=== PATIENT | male | born 1950 | race Caucasian/White ===

== ENCOUNTER 2016-08-13 05:04 | Inpatient (IN) | payer BC, OTHER ==
[2016-08-02 12:00] VITALS: BMI 34.0
--- NOTE | 2016-08-02 12:31 | PAT Medication Instructions ---
Service Date Aug 02, 2016. Current Home Medication List Empagliflozin (Jardiance), 10 MG PO QPM Fish Oil ([place]-3), 1 CAP PO DAILY Ibuprofen Tab (Advil), 400 MG PO TID PRN for RN Irbesartan-Hydrochlorothiazide (Avalide), 1 TAB PO QAM Multivitamin (Multivitamin), 1 TAB PO QPM Nebivolol Hcl (Bystolic), 5 MG PO QAM Omeprazole (Omeprazole), 1 TAB PO PRN Rosuvastatin Calcium (Crestor), 5 MG PO QPM Tramadol (Ultram), 50-100 MG PO TID PRN for geriatric nurse Instructions For Your Scheduled Surgery - Hold the following medications 10 days prior to surgery: Fish Oil ([place]-3), 1 CAP PO DAILY Ibuprofen Tab (Advil), 400 MG PO TID PRN for RN - Hold the following medications the morning of surgery: Irbesartan-Hydrochlorothiazide (Avalide), 1 TAB PO QAM - Take the following medications the morning of surgery with a sip of water: Tramadol (Ultram), 50-100 MG PO TID PRN for RN (can take up to four hours prior to surgery if needed) Omeprazole (Omeprazole), 1 TAB PO PRN Nebivolol Hcl (Bystolic), 5 MG PO QAM - Take the following medications as scheduled the night before surgery: Tramadol (Ultram), 50-100 MG PO TID PRN for RN Rosuvastatin Calcium (Crestor), 5 MG PO QPM Multivitamin (Multivitamin), 1 TAB PO QPM Empagliflozin (Jardiance), 10 MG PO QPM If you have any questions please call us at [phone] or [phone] ( Pat) or [phone]
--- NOTE | 2016-08-02 13:21 | DIAGNOSTIC IMAGING REPORT ---
TWO VIEW CHEST CLINICAL HISTORY: Preoperative examination. FINDINGS: PA and lateral chest radiographs are obtained. No prior studies are available for comparison at the time of dictation. The cardiomediastinal silhouette is unremarkable. The lungs and pleural spaces are clear. There is no pneumothorax. The bony thorax appears intact. IMPRESSION: No active disease in the chest. Electronically signed by: Haris Denny M.D. 08/02/2016 1:20 PM Dictated Date/Time: 08/02/2016 1:19 PM
[2016-08-02 13:35] LABS: BASO % 0.6 %; BASO ABS # 0.04 K/uL (0-0.2); COMPLETE YES; EOS % 3.6 %; HEMATOCRIT 44.6 % (42-52); IG% 0.3 %; LYMPH % 38.3 %; LYMPH ABS # 2.36 K/uL (1.2-3.4); MEAN CELL VOLUME 93.3 fL (80-100); MEAN CORPUSCULAR HGB CONC 34.3 g/dl (32-36); MEAN PLATELET VOLUME 9.3 fL (7.4-10.4); MONO % 9.9 %; NEUT % 47.3 %; PLATELET COUNT 280 K/uL (130-400); RED BLOOD COUNT 4.78 M/uL (4.7-6.1); WHITE BLOOD COUNT 6.16 K/uL (4.8-10.8)
[2016-08-02 13:39] LABS: URINE APPEARANCE CLEAR (CLEAR); URINE BILIRUBIN NEG (NEG); URINE COLOR YELLOW; URINE NITRITE NEG (NEG); URINE PH 5.5 (4.5-7.5); URINE SPECIFIC GRAVITY 1.034 (1.000-1.030); UROBILINOGEN NEG (NEG); ZZUR CULT IF INDIC CLEAN CATCH NO
[2016-08-02 13:50] LABS: MANUAL MICROSCOPIC REQUIRED? NO; REVIEW REQ? NO
[2016-08-02 14:00] LABS: PARTIAL THROMBOPLASTIN RATIO 0.9; PROTHROMBIN TIME (PATIENT) 10.4 SECONDS (9.0-12.0)
[2016-08-02 14:43] LABS: BUN/CREATININE RATIO 22.7 (10-20); CALCIUM 9.6 mg/dl (8.5-10.1); CREATININE 1.1 mg/dl (0.60-1.40); POTASSIUM 4.2 mmol/L (3.5-5.1)
--- NOTE | 2016-08-12 23:57 | HISTORY & PHYSICAL EXAMINATION ---
DATE OF ADMISSION: 08/13/2016 CHIEF COMPLAINT: Right hip pain. 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 The pain rates his pain an 8/10. He has pain with his daily activities. He has limited standing and walking tolerance. Pain is worse with weightbearing. The patient has had anti-inflammatories, injections and tramadol without relief. He has failed conservative treatments and is scheduled for a right hip replacement. PAST MEDICAL HISTORY: Hypertension, hypercholesterolemia, prediabetes and osteoarthritis. He denies heart disease or DVT. PAST SURGICAL HISTORY: ACL reconstruction left, L3-L4 microdiscectomy, left elbow arthroscopic surgery, left knee hardware removal and left knee SOCIAL HISTORY: The patient drinks 10 drinks per week. He denies tobacco use. He lives in a 2-ronnie home. 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 FAMILY HISTORY: Positive for [place] in his brother at age 59. Negative for DVT. MEDICATIONS: ALLERGIES: None. REVIEW OF SYSTEMS: See HPI. Ten other systems were reviewed, all negative. PHYSICAL EXAMINATION: VITAL SIGNS: Height 5 feet 7 inches, weight 221 pounds, BMI of 35. GENERAL: A well-developed and well-nourished male, who is alert and oriented x3. Mood and affect are appropriate. HEENT: Normocephalic and atraumatic. Mucous membranes are moist and intact. NECK: Supple without lymphadenopathy. HEART: Regular rate and rhythm without murmurs, rubs or gallops. LUNGS: Clear to auscultation without wheezes or rhonchi. ABDOMEN: Soft and nontender. Bowel sounds are equal and active. EXTREMITIES: No ecchymosis, redness or warmth. The calves are soft and nontender. Log roll of the hip reproduces pain. Range of motion is decreased. Neurovascularly intact, with 5/5 strength. He walks with an antalgic gait. X-RAY: AP and lateral views show joint space narrowing and osteophyte formation. IMPRESSION: Degenerative joint disease, right hip. PLAN: The patient will be fixed for a right total hip arthroplasty, direct anterior approach. We will plan on aspirin for DVT prophylaxis. COLEMAN
[~2016-08-13] VITALS: Ht 172.7 cm; Wt 100.0 kg
[2016-08-13] VITALS (10 sets, daily range): BP systolic 108–146; BP diastolic 68–91; PULSE 68–89; TEMP 36.2–36.6; O2SAT 95–99; Ht 172.7 cm; Wt 100.0 kg
[~2016-08-13 05:04] MED LIST: EMPA1TAB PO; IBUP-103 PO; IRBE-43 PO; MULT-506 PO; NEBI10TA2 PO; OMEG10007 PO; OMEP20TA PO; ROSU5TAB PO; TRAM-10 PO
[2016-08-13] MEDS ORDERED: ACETAMINOPHEN 500 MG TAB PO SCH (06:00)
[2016-08-13] MEDS ORDERED: CEFAZOLIN 2000 MG/60 ML D5W 60 ML IV SCH (06:00)
[2016-08-13] MEDS ORDERED: POLYMYXIN B SULFATE 100,000 UNITS in NSS 100ML IR SCH (06:00)
[2016-08-13] MEDS ORDERED: LACTATED RINGER'S 1000ML IV SCH (06:00)
[2016-08-13] MEDS ORDERED: LACTATED RINGER'S 1000ML 1,000 ML IV SCH (06:00)
[2016-08-13] MEDS ORDERED: CeleBREX 200 MG CAP PO SCH (06:00)
[2016-08-13] MEDS ORDERED: FAMOTIDINE 20 MG TAB PO SCH (06:00)
[2016-08-13] MEDS ORDERED: LACTATED RINGER'S 500 ML IV SCH (06:00)
[2016-08-13] MEDS ORDERED: DEXAMETHASONE 4 MG TAB PO SCH (06:00)
[2016-08-13] MEDS ORDERED: VANCOMYCIN INJ 400 MG in NSS 100ML IR SCH (06:00)
[2016-08-13] MEDS ORDERED: METOCLOPRAMIDE HCL 10 MG TAB PO SCH (06:00)
[2016-08-13] MEDS ORDERED: GABAPENTIN 300 MG CAP PO SCH (06:00)
[2016-08-13] MEDS ORDERED: OXYCODONE HCL 10 MG TABCR (OXYCONTIN) PO SCH (06:00)
[2016-08-13] MEDS ORDERED: ROPIVACAINE 5MG/ML 30 ML 150 MG, BUPIVACAINE/EPINEPHR 0.5% MPF 30 ML, KETOROLAC TROMETH... INFIL SCH ×7 (06:00)
[2016-08-13] MEDS: TRANEXAMIC ACID INJ 1,000 MG in SODIUM CHLORIDE 0.9% 100ML 100 ML IV SCH ×2 (06:10→11:57)
[2016-08-13] MEDS ORDERED: BUPIVACAINE 0.5 % 5 MG/1 ML PF 10ML VIAL ONE (06:29)
[2016-08-13] MEDS ORDERED: MIDAZOLAM HCL 1 MG/ML 2ML VIAL ONE ×2 (06:45)
[2016-08-13] MEDS ORDERED: FENTANYL CITRATE INJ 50 MCG/1 ML 2 ML VIAL ONE (06:45)
[2016-08-13] MEDS ORDERED: BACITRACIN 50000 UNIT VIAL ONE (06:52)
[2016-08-13] MEDS ORDERED: ORTHO JOINT ANESTHETIC ONE (06:52)
[2016-08-13] MEDS ORDERED: POVIDONE-IODINE OP SOLN 30 ML BTL ONE (06:52)
--- NOTE | 2016-08-13 06:52 | History & Physical Bridge Note ---
H&P Re-Evaluation Bridge Note: I have examined the patient, reviewed the History & Physical and in the interval since the performance of the History & Physical I have noted the following changes of clinical significance: No changes noted
[2016-08-13] MEDS ORDERED: ONDANSETRON INJ 2 MG/ML 2 ML VIAL IV PRN (07:00)
[2016-08-13] MEDS ORDERED: EpHEDrine SULFATE INJ 50 MG/ML AMP IV PRN (07:00)
[2016-08-13] MEDS ORDERED: ATROPINE SULFATE 0.1 MG/ML 5ML SYR IV PRN (07:00)
[2016-08-13] MEDS ORDERED: FENTANYL CITRATE INJ 50 MCG/1 ML 2 ML VIAL IV PRN (07:00)
[2016-08-13] MEDS ORDERED: PHENYLEPHRINE 100MCG/ML 5ML SYR ONE (07:33)
[2016-08-13] MEDS ORDERED: LIDOCAINE HCL 2% 2 ML VIAL (20MG/ML) ONE (07:33)
[2016-08-13] MEDS ORDERED: PROPOFOL IV EMULSION 10 MG/ML 20 ML VIAL IV ONE (07:33)
[2016-08-13] MEDS ORDERED: EpHEDrine SULFATE 50MG/5ML SYR ONE (07:33)
--- NOTE | 2016-08-13 08:36 | [facility] Post Operative Brief Note ---
Immediate Operative Summary Operative Date August 13, 2016. Pre-Operative Diagnosis Right hip degenerative joint disease Post-Operative Diagnosis Right hip degenerative joint disease Procedure(s) Performed Right Total Hip Arthroplasty Direct Anterior Approach Surgeon Dr. Hubert [facility] [employer] Consultant Surgeon(s) Maribeth Ratliff PA-C Estimated Blood Loss 75ML Findings DJD Specimens A. Right femoral head Complication(s) None Disposition Recovery Room / PACU
[2016-08-13] MEDS ORDERED: MoRPHine SULFATE 2 MG/ML CARP IV PRN (08:45)
[2016-08-13] MEDS ORDERED: DiphenhydrAMINE HCL 50 MG/ML VIAL IV PRN (08:45)
[2016-08-13] MEDS ORDERED: OXYCODONE HCL IR 5 MG TAB (IMMEDIATE RELEASE) PO PRN (08:45)
[2016-08-13] MEDS ORDERED: TRAMADOL HCL 50 MG TAB PO PRN (08:45)
[2016-08-13] MEDS ORDERED: ALUMINUM/MAGNESIUM/SIMETH (MAALOX MAX) 30 ML UDC PO PRN (08:45)
[2016-08-13] MEDS ORDERED: ZOLPIDEM TARTRATE 5 MG TAB PO PRN (08:45)
[2016-08-13] MEDS ORDERED: MAGNESIUM HYDROXIDE SUSP 30 ML UDC PO PRN (08:45)
[2016-08-13] MEDS ORDERED: BISACODYL 10 MG SUPP PR PRN (08:45)
[2016-08-13] MEDS ORDERED: METOCLOPRAMIDE HCL INJ 5 MG/ML 2 ML VIAL IV PRN (08:45)
[2016-08-13] MEDS ORDERED: SOD PHOSPHATE/SOD BIPHOSPHATE ENEMA 132 ML BTL PR PRN (08:45)
[2016-08-13] MEDS ORDERED: NON-FORMULARY MEDICATION (Irbesartan-Hydrochlorothiazide (Avalide) 1 TAB) PO SCH (09:00)
--- NOTE | 2016-08-13 10:12 | DIAGNOSTIC IMAGING REPORT ---
AP PELVIS, CROSSTABLE LATERAL RIGHT HIP History: Right total hip arthroplasty. Degenerative arthritis. Postop. FINDINGS: The patient is status post a right total hip arthroplasty. The hardware is intact. No fracture or dislocation. Surgical drains are in place. IMPRESSION: Right total hip arthroplasty. No evidence for hardware complication Electronically signed by: Stanton Zacarias M.D. 08/13/2016 10:11 AM Dictated Date/Time: 08/13/2016 10:10 AM
--- NOTE | 2016-08-13 10:17 | Anesthesiology Progress Note ---
Anesthesia Post Op Note Date & Time August 13, 2016 at 10:17 Vital Signs Pain Intensity: 0 Vital Signs Past 12 Hours Date Time Temp Pulse Resp B/P Pulse Ox O2 Delivery O2 Flow Rate FiO2 08/13/16 10:11 80 15 100 08/13/16 10:11 78 15 08/13/16 10:10 118/81 08/13/16 10:06 71 19 100 08/13/16 10:06 72 19 08/13/16 10:05 132/86 08/13/16 10:01 73 16 100 08/13/16 10:01 69 16 08/13/16 10:00 126/81 08/13/16 09:56 62 12 08/13/16 09:56 61 12 99 08/13/16 09:55 120/72 08/13/16 09:51 62 10 100 08/13/16 09:51 62 10 08/13/16 09:50 112/64 08/13/16 09:46 66 15 08/13/16 09:46 66 15 100 08/13/16 09:45 123/75 08/13/16 09:41 65 16 08/13/16 09:41 64 16 100 08/13/16 09:40 107/71 08/13/16 09:36 74 24 08/13/16 09:36 78 24 100 08/13/16 09:35 133/75 08/13/16 09:31 74 17 100 08/13/16 09:31 72 17 08/13/16 09:30 108/73 08/13/16 09:26 69 6 100 08/13/16 09:26 67 6 08/13/16 09:25 126/73 08/13/16 09:21 78 22 08/13/16 09:21 78 22 100 08/13/16 09:20 74 13 99/82 100 08/13/16 09:20 74 13 08/13/16 09:15 70 17 08/13/16 09:15 69 17 119/71 99 08/13/16 09:10 73 17 107/76 100 08/13/16 09:10 73 17 08/13/16 09:06 115/67 08/13/16 09:05 78 13 100 08/13/16 09:05 79 13 08/13/16 09:00 73 14 08/13/16 09:00 73 14 119/69 100 08/13/16 08:55 36.3 70 16 119/69 100 Nasal Cannula 3 08/13/16 05:37 36.6 77 20 134/91 95 Room Air Notes Mental Status: alert / awake / arousable, participated in evaluation Pt Amnestic to Procedure: Yes Nausea / Vomiting: adequately controlled Pain: adequately controlled Airway Patency, RR, SpO2: stable & adequate BP & HR: stable & adequate Hydration State: stable & adequate Neuraxial Anesthesia: was administered, sensory block is resolving Anesthetic Complications: no major complications apparent
--- NOTE | 2016-08-13 11:50 | DIAGNOSTIC IMAGING REPORT ---
INTRAOPERATIVE RIGHT HIP SINGLE VIEW CLINICAL HISTORY: Right hip arthroplasty COMPARISON STUDY: No previous studies for comparison. FINDINGS: A single intraoperative fluoroscopic spot images provided for interpretation. 14 seconds of fluoroscopic time was utilized. There is a total right hip arthroplasty. The superior aspect of the acetabular cup is not included on the spot image. There is no dislocation identified. IMPRESSION: Intraoperative radiograph demonstrating a total right hip arthroplasty Electronically signed by: Teofilo Ayala M.D. 08/13/2016 11:49 AM Dictated Date/Time: 08/13/2016 11:48 AM
[2016-08-13] MEDS: D5W AND 1/2NSS + 20MEQ KCL 1,000 ML IV SCH ×2 (11:57→21:19)
[2016-08-13] MEDS: ACETAMINOPHEN 500 MG TAB PO SCH ×2 (13:46→21:20)
[2016-08-13] MEDS ORDERED: TRANEXAMIC ACID INJ 1,000 MG in SODIUM CHLORIDE 0.9% 100ML 100 ML IV ONE (15:00)
[2016-08-13] MEDS: KETOROLAC TROMETHAMINE 15 MG/ML VIAL IV. SCH ×2 (15:21→21:18)
[2016-08-13] MEDS: CEFAZOLIN IV 2,000 MG in DEXTROSE 5% 50ML 50 ML IV SCH ×2 (15:51→23:54)
[2016-08-13] MEDS ORDERED: SENNA 8.6 MG TAB PO SCH (21:00)
[2016-08-13] MEDS ORDERED: ROSUVASTATIN CALCIUM 5 MG TAB PO SCH (21:00)
[2016-08-13] MEDS: ASPIRIN 81 MG ECTAB PO SCH (21:19)
--- NOTE | 2016-08-13 22:50 | OPERATIVE REPORT ---
DATE OF OPERATION: 08/13/2016 PREOPERATIVE DIAGNOSIS: Degenerative arthritis, right hip. POSTOPERATIVE DIAGNOSIS: Same. PROCEDURE: Right total hip replacement. SURGEON: Hubert Orlando MD. CANE FLUME WATCHER: EARNEST Hsieh. ANESTHESIA: Spinal. BLOOD LOSS: 75 mL REPLACEMENT FLUIDS: 1500 mL crystalloid. DRAINS: Hemovacs x1. CULTURES: None. COMPLICATIONS: None. COMPONENTS USED: Fatima \T\ Nephew polar hip system: Acetabulum size 56, femur size 3 lateral offset, femoral head +4, 36 mm. NOTE: EARNEST Hsieh, was present and assisted throughout due to the complicated nature of this case. She helped with preparation and setup, first assisted throughout, and personally closed the fascial, subcutaneous and skin layers, and applied the postop dressing. DESCRIPTION: Following satisfactory spinal, the patient was supine. The right leg was placed in the traction device, the left leg in the well leg vega. The right leg was prepared with ChloraPrep and draped sterilely. Following a surgical timeout, an anterior approach was performed in the interval between the sartorius and tensor muscles. Circumflex femoral vessels were identified and ligated. An anterior capsulotomy was performed exposing the arthritic femoral neck and head. The femoral neck was trimmed and removed, showing degenerative changes. The acetabular self-retaining retractor was placed. Acetabular preparation was completed, and with reaming, a 56 shell was impacted into an anatomic position, secured with a dome screw. Local anesthetic was placed, and after irrigation, the poly liner was placed. The femur was placed in a position of external rotation, extension and adduction. Femoral canal was opened and prepared up to size 3. A trial reduction with a +4 head using fluoroscopy showed good fit and fill of the proximal canal and temple of leg lengths using anatomic landmarks. The trial component was removed. The hip was dislocated. The final implant was placed. After irrigation, fluoroscopy confirmed the position. A Betadine soak was performed for 5 minutes. After irrigation, the capsule was closed with #1 Vicryl interrupted. The fascia was closed with a running suture of #1 Vicryl after a drain was placed, subcutaneous tissues with 2-0 Vicryl, and the skin with a running subcuticular stitch of 3-0 V-Loc. Dermabond and a dry dressing were applied. The patient was returned to his bed in stable condition. I attest to the content of the Intraoperative Record and any orders documented therein. Any exceptio ns are noted below.
[2016-08-14] MEDS: KETOROLAC TROMETHAMINE 15 MG/ML VIAL IV. SCH ×2 (03:35→09:38)
[2016-08-14 04:04] VITALS: BP 113/72; PULSE 65; TEMP 36.5; O2SAT 97
[2016-08-14] MEDS: ACETAMINOPHEN 500 MG TAB PO SCH (05:51)
[2016-08-14 06:11] LABS: BASO % 0.1 %; BASO ABS # 0.02 K/uL (0-0.2); COMPLETE YES; HEMATOCRIT 37.5 % (42-52); IG% 0.3 %; LYMPH % 8.9 %; LYMPH ABS # 1.21 K/uL (1.2-3.4); MEAN CELL VOLUME 92.4 fL (80-100); MEAN CORPUSCULAR HGB CONC 33.6 g/dl (32-36); MEAN PLATELET VOLUME 9.4 fL (7.4-10.4); MONO % 8.5 %; NEUT % 82.2 %; PLATELET COUNT 220 K/uL (130-400); RED BLOOD COUNT 4.06 M/uL (4.7-6.1); WHITE BLOOD COUNT 13.59 K/uL (4.8-10.8)
[2016-08-14 06:38] LABS: BUN/CREATININE RATIO 19.5 (10-20); CALCIUM 8.3 mg/dl (8.5-10.1); CREATININE 1.2 mg/dl (0.60-1.40); POTASSIUM 4.3 mmol/L (3.5-5.1)
[2016-08-14] MEDS: D5W AND 1/2NSS + 20MEQ KCL 1,000 ML IV SCH (06:59)
[2016-08-14 07:59] VITALS: BP 119/73; PULSE 72; TEMP 36.8; O2SAT 99
[2016-08-14] MEDS ORDERED: RXC5 PO (08:03)
[2016-08-14] MEDS ORDERED: ONDA8TAB6 PO (08:03)
[2016-08-14] MEDS ORDERED: ACET-1138 PO (08:03)
[2016-08-14] MEDS ORDERED: CLB200 PO (08:03)
[2016-08-14] MEDS ORDERED: SNK PO (08:03)
[2016-08-14] MEDS ORDERED: ASPEC81 PO (08:03)
--- NOTE | 2016-08-14 08:04 | Discharge Instructions ---
Discharge Instructions Date of Service August 14, 2016. Admission Reason for Admission: Right Pelvis/Thigh Degenerative Arthritis Discharge Discharge Diagnosis / Problem: sp right CLARK Discharge Goals Goal(s): Decrease discomfort, Improve function, Increase independence Activity Recommendations Activity Limitations: per Instructions/Follow-up section . Instructions / Follow-Up Instructions / Follow-Up ACTIVITY RECOMMENDATIONS: SELF CARE INSTRUCTIONS AFTER TOTAL HIP REPLACEMENT : Direct Anterior Approach Until the incision and soft tissues around your hip have healed, there is a possibility that the hip prosthesis could dislocate. A. Hip flexion ( Up & Down out of chair or steps ) may be difficult. This is normal. B. Numbness in front of the thigh is also normal for a few weeks. C. Use hand rails when walking on stairs. D. Wear low heeled shoes with non-slip soles. E. Be sure that your floors are free of things that could trip you - throw rugs , electrical cords, small objects. Avoid wet and waxed floors, especially with crutches and canes. F. Try to walk several times a day with rest periods between. G. Continue with all the exercises taught to you in the hospital. Again, make walking a part of your daily routine. SPECIAL CARE INSTRUCTIONS: VERY IMPORTANT TO READ AND REVIEW A. You may still be at risk for phlebitis and blood clots. 1. Wear surgical stockings (GERTRUDIS hose) for 2 weeks after surgery to improve circulation and reduce swelling. 2. Take Aspirin 81mg twice daily for 4 weeks or as directed by your doctor. This is your blood thinner. 3. High risk patients may be prescribed a stronger blood thinner if necessary. 4. If you are on Coumadin normally, your family doctor/trade show coordinator should monitor your blood work. Expect a phone call the day of or the day after bloodwork is drawn to adjust your dosage. B. You must take antibiotics before having dental work, bladder, bowel and other surgery. Your doctor will provide you with a permanent card to carry describing precautions. C. Call [facility] if you have a fever, redness or swelling around the incision, cloudy drainage from incision, or sudden increase in pain in your hip, not relieved by your regular pain medication. D. Please call the office at if you have any concerns or questions about your operation or recovery. * YOU MAY SHOWER, NO TUB BATHS UNTIL CLEARED BY YOUR DOCTOR. - Keep an extra close eye on the top portion of your incision. Be sure to keep clean & dry. * WEAR GERTRUDIS HOSE 20 HOURS PER DAY FOR 2 WEEKS. * YOU MAY PROGRESS FROM A WALKER, TO A CANE, TO INDEPENDENT AT YOUR OWN PACE. * MOST PATIENTS WILL HAVE HOME NURSING FOR THERAPY. IF YOU DECIDE TO DO OUTPATIENT PHYSICAL THERAPY, PLEASE SCHEDULE THIS 3 TIMES PER WEEK. * DERMABOND Prineo- This is a mesh tape dressing that is covered with glue. It should remain in place until the incision is properly healed, usually 10-14 days. This dressing is designed to naturally slough off. You may trim the excess mesh tape as it peels off. Incision may be briefly wet in a shower. Dry immediately by blotting with a clean, dry towel. Do not bath or swim until instructed by your doctor. Do not scratch, rub, or pick at the dressing. Do not apply any topical ointments or lotions until dressing is completely removed and/or instructed by your doctor. There may be a small piece of suture material at one end of your incision. Do not pull or trim this. If it is bothersome or catching on clothing, you may cover it with a band-aid. FOLLOW UP VISIT: If appointment is not already scheduled: Please call [facility] to make a follow-up appointment for 2 weeks after your surgery at . Current Hospital Diet Patient's current hospital diet: Regular Diet Discharge Diet Recommended Diet: Regular Diet Procedures Procedures Performed: Right Total Hip Arthroplasty Direct Anterior Approach Pending Studies Studies pending at discharge: no Medical Emergencies . Who to Call and When: Medical Emergencies: If at any time you feel your situation is an emergency, please call 911 immediately. . Non-Emergent Contact Non-Emergency issues call your: Surgeon . "Provider Documentation" section prepared by Maribeth Ratliff. . VTE Core Measure Inpt VTE Proph given/why not?: Other Anticoagulation, T.E.D. Stockings, SCD's [place] Drug Monitoring Program Search Results: patient reviewed within database, no issues identified
--- NOTE | 2016-08-14 08:14 | DISCHARGE SUMMARY ---
DISCHARGE DIAGNOSIS: Degenerative joint disease, right hip. SECONDARY DIAGNOSIS: None. CONSULTS: None. COMPLICATIONS: None. PROCEDURE: The patient underwent a direct anterior right total hip arthroplasty with Dr. Orlando on 08/13/2016. BRIEF HISTORY: Please see previously dictated history and physical. HOSPITAL SUMMARY: The patient was admitted on the above date for the above procedure. Procedure went without complication. Postop day 1, the patient was feeling well without complaints. Vital signs were stable. He was afebrile. Dressing was clean, dry and intact. He was neurovascularly intact. Calves were soft and nontender. Hip was located. Hemovac drained 250 and 100 mL. Hemoglobin was 12.6. The patient began physical therapy per protocol. He was discharged to home later that day in stable condition. For further review please see the chart. Lab, x-ray data and discharge instructions as per chart.
--- NOTE | 2016-08-14 08:14 | Anesthesiology Progress Note ---
Anesthesia Post Op Note Date & Time August 14, 2016 at 08:14 Vital Signs Pain Intensity: 2.0 Vital Signs Past 12 Hours Date Time Temp Pulse Resp B/P Pulse Ox O2 Delivery O2 Flow Rate FiO2 08/14/16 07:59 36.8 72 16 119/73 99 Room Air 08/14/16 07:22 Room Air 08/14/16 04:04 36.5 65 16 113/72 97 Room Air 08/13/16 23:50 Room Air 08/13/16 22:59 36.6 81 16 108/68 99 Room Air Notes Mental Status: alert / awake / arousable, participated in evaluation Pt Amnestic to Procedure: Yes Nausea / Vomiting: adequately controlled Pain: adequately controlled Airway Patency, RR, SpO2: stable & adequate BP & HR: stable & adequate Hydration State: stable & adequate Neuraxial Anesthesia: sensory block resolved Anesthetic Complications: no major complications apparent
[2016-08-14] MEDS ORDERED: MULTIVITAMIN TAB PO SCH (09:00)
[2016-08-14] MEDS ORDERED: HYDROCHLOROTHIAZIDE 25 MG TAB PO SCH (09:00)
[2016-08-14] MEDS ORDERED: PANTOprazole SOD 40 MG TAB PO SCH (09:00)
[2016-08-14] MEDS ORDERED: NEBIVOLOL HCL 5 MG TAB PO SCH (09:00)
[2016-08-14] MEDS ORDERED: IRBESARTAN 150 MG TAB PO SCH (09:00)
[2016-08-14] MEDS: ASPIRIN 81 MG ECTAB PO SCH (09:01)
[2016-08-14 10:26] VITALS: O2SAT 99
[2016-08-14 11:48] VITALS: BP 119/73; PULSE 72; TEMP 36.8; O2SAT 99
[2016-08-15] MEDS ORDERED: CeleBREX 200 MG CAP PO SCH (21:00)
== END 2016-08-14 12:58 | disposition home health service (06) | DRG 470 ==
LOC: ENRESERVTM → ENRESERVDT → C.ACU 05:04 → C.3E 06:30
PROVIDERS: ADMIT Orthopaedic Surgery; ATTEND Orthopaedic Surgery
PROC: 0SR904Z Replacement of Right Hip Joint with Ceramic on Polyethylene Synthetic Substitute, Open Approach (ICD-10-PCS; principal; 2016-08-13 07:00)
DX: M16.11 Unilateral primary osteoarthritis, right hip (principal); I10 Essential (primary) hypertension; E78.00 Pure hypercholesterolemia, unspecified; K21.9 Gastro-esophageal reflux disease without esophagitis; R73.03 Prediabetes; E66.9 Obesity, unspecified; Z68.34 Body mass index [BMI] 34.0-34.9, adult; Z79.84 Long term (current) use of oral hypoglycemic drugs; Z79.891 Long term (current) use of opiate analgesic; Z79.899 Other long term (current) drug therapy